=== PATIENT | female | born 1960 | race Hispanic/Latino ===

== ENCOUNTER → 2018-04-18 | Outpatient (CLI) | payer MEDICARE | END | disposition home or self-care (01) | LOC: RAH 10:32 | PROVIDERS: ATTEND Neurological Surgery | DX: M48.061 Spinal stenosis, lumbar region without neurogenic claudication (principal); M51.16 Intervertebral disc disorders with radiculopathy, lumbar region | CPT/HCPCS: 72148 ==

== ENCOUNTER → 2018-05-27 | Outpatient (CLI) | payer MEDICARE ==
[~2018-05-27] VITALS: Ht 160 cm; Wt 80.6 kg
[~2018-05-27] MED LIST: ASPI-555 PO; CARV12.511 PO; CARV6.25 PO; CLON0.2T PO; ERGO500014 PO; IBUP-2076 PO; LEVO75TA10 PO; LISI40TA4 PO; OMEP20TA25 PO; PRED5TAB PO; TOFA11TA PO
[2018-05-27 11:49] LABS: BASOPHILS % (AUTO) 0.3 % (0.0-5.0); EOSINOPHILS % (AUTO) 2.6 % (0.0-8.0); HEMATOCRIT 34.5 % (36-48); MEAN CORPUSCULAR HEMOGLOBIN 30.4 pg (27.0-33.0); MEAN CORPUSCULAR HGB CONC 33.7 g/dL (32.0-36.0); MEAN CORPUSCULAR VOLUME 90.4 fL (79-99); MONOCYTES % (AUTO) 10.7 % (3.0-13.0); NEUTROPHILS % (AUTO) 48.4 % (40.0-77.0); PLATELET COUNT (AUTO) 187 K/uL (130-400); RED BLOOD CELL COUNT(AUTO) 3.82 MIL/uL (4.00-5.50); RED CELL DISTRIBUTION WIDTH 13.9 % (11.0-15.5); WHITE BLOOD COUNT (AUTO) 3.4 K/uL (4.8-10.8)
[2018-05-27 11:58] LABS: POTASSIUM 3.8 mmol/L (3.5-5.1)
[2018-05-27 12:51] VITALS: BP 182/82
--- NOTE | 2018-05-27 13:36 | NUR ---
bp patient preop today and noted with elevated bp 190/82 , pt states has a pain of 8 in level 1-10, Notified Dr. Joya, message left with [facility], as per Dr. Joya have patient see cardiology again before sx. There is already cardiac clearance on file, but due to elevated bp dr. joya wants patient to be seen again. Called Dr. Cueto office patient can be seen tomorrow 05/28/18 at 1 pm , pt was notified.
--- NOTE | 2018-05-28 14:00 | NUR ---
CBC WBC 3.4, H&H low,drawn 05/27/[address] Bagley/Ed[facility], repeat cbc in am of surgery
--- NOTE | 2018-05-28 15:18 | NUR ---
Cancel Surgery surgery canceled due to elevated BP per Dr Saxena to Edita/Dr Bagley
== END | disposition home or self-care (01) ==
LOC: DAH 10:00 → EDSTATUS 10:45
PROVIDERS: ATTEND Neurological Surgery
DX: Z01.818 Encounter for other preprocedural examination (principal); M51.26 Other intervertebral disc displacement, lumbar region; I10 Essential (primary) hypertension
CPT/HCPCS: 36415; 71045; 80051; 85025

== ENCOUNTER 2018-07-10 10:52 | Day surgery (SDC) | payer MEDICARE ==
[2018-07-08 09:26] LABS: BILIRUBIN,URINE Negative (NEGATIVE); COLOR,URINE Yellow (YELLOW); GLUCOSE, URINE (UA) Negative (NEGATIVE); KETONES,URINE Trace mg/dL (NEGATIVE); LEUKOCYTE ESTERASE ,URINE Small (NEGATIVE); NITRATE,URINE Negative (NEGATIVE); OCCULT BLOOD,URINE Negative (NEGATIVE); PH,URINE 5.5 (5.0-8.0); PROTEIN,URINE Negative (NEGATIVE)
[2018-07-08 09:26] LABS: BASOPHILS % (AUTO) 0.4 % (0.0-5.0); EOSINOPHILS % (AUTO) 2.2 % (0.0-8.0); HEMATOCRIT 31.4 % (36-48); LYMPHOCYTES % (AUTO) 33.7 % (21.0-51.0); MEAN CORPUSCULAR HEMOGLOBIN 29.9 pg (27.0-33.0); MEAN CORPUSCULAR HGB CONC 33.6 g/dL (32.0-36.0); MEAN CORPUSCULAR VOLUME 89.2 fL (79-99); MONOCYTES % (AUTO) 12.8 % (3.0-13.0); NEUTROPHILS % (AUTO) 50.9 % (40.0-77.0); NUCLEATED RED BLOOD CELLS 0.1 % (0.0-0.19); PLATELET COUNT (AUTO) 152 K/uL (130-400); RED BLOOD CELL COUNT(AUTO) 3.52 MIL/uL (4.00-5.50); RED CELL DISTRIBUTION WIDTH 13.6 % (11.0-15.5); WHITE BLOOD COUNT (AUTO) 2.4 K/uL (4.8-10.8)
[2018-07-08 09:32] VITALS: BP 125/63
[2018-07-08 09:42] LABS: CREATININE 0.9 mg/dL (0.5-1.5); POTASSIUM 4.1 mmol/L (3.5-5.1)
[2018-07-08 09:45] LABS: APPEARANCE,URINE SLIGHTLY CLOUDY (CLEAR)
[2018-07-08 09:46] LABS: INR 0.95 (0.85-1.15); PARTIAL THROMBOPLASTIN TIME 25.7 SEC (26.3-35.5)
[2018-07-08 09:55] LABS: BACTERIA,URINE Rare /HPF (None Seen); MUCUS,URINE Rare LPF (None Seen); RBC,URINE 0-1 /HPF (0-1); SQUAMOUS EPITHELIAL CELL,UR Few /HPF (0-2); WBC,URINE 0-1 /HPF (0-1)
[2018-07-08 10:41] LABS: EOSINOPHILS % (MANUAL) 3 % (1-6); LYMPHOCYTES % (MANUAL) 33 % (22-44); MAN.DIFF COMMENT-IMPRESSION MANUAL DIFFERENTIAL; MONOCYTES % (MANUAL) 11 % (2-9); PLATELET MORPHOLOGY COMMENT ADEQUATE; REACTIVE LYMPHOCYTES 3 % (0-0); SEGMENTED NEUTROPHILS % 50 % (40-70)
--- NOTE | 2018-07-09 10:24 | NUR ---
ABNORMAL LABS SANDRA SINGH NOTIFIED OF PT'S WBC 2.4, ULEUKEST SMALL. NO FURTHER ORDERS GIVEN.
[~2018-07-10] VITALS: Ht 160 cm; Wt 80.1 kg
[2018-07-10] VITALS (9 sets, daily range): BP systolic 112–159; BP diastolic 59–84
[~2018-07-10 10:52] MED LIST changes: +CLON0.1T PO
[2018-07-10] MEDS ORDERED: SODIUM CHLORIDE 0.9% 1000ML 1,000 ML IV ONE (12:31)
--- NOTE | 2018-07-10 15:00 | NUR ---
REPORT RECEIVED REPORT FROM Katia LINARES RN. PT RESTING IN BED. DENIES ANY CP, SOB AT THIS TIME. AT BEDSIDE.
[2018-07-10] MEDS ORDERED: IOHEXOL-350 50ML VIAL IV ONE (15:26)
[2018-07-10] MEDS ORDERED: NITROGLYCERIN 5 MG/ML 10 ML VIAL IV ONE (15:26)
[2018-07-10] MEDS ORDERED: IOHEXOL 350 MG/ML 100ML INFUS..BTL IV ONE (15:26)
[2018-07-10] MEDS ORDERED: LIDOCAINE HCL-MPF 2% 10ML AMP IJ ONE (15:26)
[2018-07-10] MEDS ORDERED: BIVALIRUDIN 250 MG/VIAL IV ONE (15:26)
--- NOTE | 2018-07-10 15:35 | NUR ---
PROCEDURE PT TAKEN TO PROCEDURE VIA BED BY SCAR PEREZ.
[2018-07-10] MEDS ORDERED: LABETALOL HCL 5 MG/ML 20ML VIAL IV ONE (16:00)
[2018-07-10] MEDS ORDERED: HYDRALAZINE HCL 20 MG/ML VIAL ONE (16:31)
[2018-07-10] MEDS ORDERED: NITROGLYCERIN 0.4 MG SL TAB SL ONE (16:32)
[2018-07-10] MEDS ORDERED: SODIUM CHLORIDE 0.9% 1000ML 1,000 ML IV SCH (17:06)
--- NOTE | 2018-07-10 17:20 | NUR ---
ASSESSMENT RECEIVED PT FROM [employer] MECHANIC STAFF SCAR PEREZ. PT INSTRUCTED ON IMPORTANCE OF KEEPING RIGHT LEG STRAIGHT AND NOT TO LIFT HEAD OFF OF BED TO PREVENT BLEEDING. BOTH PT AND VERBALIZED UNDERSTANDING.
--- NOTE | 2018-07-10 18:24 | NUR ---
REPORT REPORT GIVEN TO SCAR SANTORO. SITE SOFT TO RIGHT GROIN. HANK BLEEDING, OOZING NOTED.
[2018-07-10] MEDS ORDERED: ONDANSETRON HCL 4 MG/2 ML VIAL ONE (19:26)
--- NOTE | 2018-07-10 19:49 | NUR ---
Received report from nurse Haider,pt. is sitting up in chair had episode of nausea and vomiting and was given with Zofran as per report pt. is to be discharged tonight @930pm to remove IV and send pt. home ,all discharge paper was already done and completed per dayshift.Pt. is alert and oriented denies chestpain . to bedside.
--- NOTE | 2018-07-10 19:55 | NUR ---
Pt. assisted back to bed and instructed to be on bedrest ,right groin inspected and examined,no s/s bleeding and no hematoma.Pedal pulses palpable and capillary refill is less than 3
--- NOTE | 2018-07-10 21:44 | NUR ---
V/S checked and recorded,pt. stable, denies chestpain or any discomfort.Pt. verbalized feeling much better.Right groin with dressing,soft and nontender,no bleeding and no hematoma,pedal pulses are present and palpable.IV removed,catheter tip intact.Dressing applied.Pt. is wheeled per staff accompanied by family.
== END 2018-07-10 19:15 | disposition home or self-care (01) ==
LOC: DAH 10:52
PROVIDERS: ATTEND Internal Medicine Cardiovascular Disease
DX: I25.10 Atherosclerotic heart disease of native coronary artery without angina pectoris (principal); I11.9 Hypertensive heart disease without heart failure; E78.5 Hyperlipidemia, unspecified; F15.90 Other stimulant use, unspecified, uncomplicated; Z79.82 Long term (current) use of aspirin; Z79.1 Long term (current) use of non-steroidal anti-inflammatories (NSAID); Z79.899 Other long term (current) drug therapy; Z90.49 Acquired absence of other specified parts of digestive tract; Z90.710 Acquired absence of both cervix and uterus; Z95.818 Presence of other cardiac implants and grafts; Z82.49 Family history of ischemic heart disease and other diseases of the circulatory system; Z83.3 Family history of diabetes mellitus; Z82.5 Family history of asthma and other chronic lower respiratory diseases; Z82.3 Family history of stroke
CPT/HCPCS: 36415; 71045; 80048; 81001; 85025; 85610; 85730; 93005; 93458; A4606; C1760; C1894; J0360; J1644; J2405; J3490 ×2; J7030; Q9965; Q9967 ×2; J0583

== ENCOUNTER 2018-08-10 09:16 | Emergency (ER) | payer MEDICARE ==
[~2018-08-10 09:16] MED LIST changes: +AMLO5TAB9 PO; -ERGO500014 PO; +LEVO50TA11 PO; -LEVO75TA10 PO; -PRED5TAB PO; +PREDNISONE PO
[2018-08-10] MEDS ORDERED: SODIUM CHLORIDE 0.9% 1000ML 1,000 ML IV ONE (09:53)
[2018-08-10] MEDS ORDERED: ONDANSETRON HCL 4 MG/2 ML VIAL ONE (09:53)
[2018-08-10] MEDS ORDERED: MORPHINE SULFATE 4 MG/1ML SYG ONE (09:53)
[2018-08-10] MEDS ORDERED: ACETAMINOPHEN 325 MG TAB ONE (09:53)
[2018-08-10 10:04] LABS: BASOPHILS % (AUTO) 0.2 % (0.0-5.0); EOSINOPHILS % (AUTO) 0.2 % (0.0-8.0); HEMATOCRIT 38.3 % (36-48); MEAN CORPUSCULAR HEMOGLOBIN 30.8 pg (27.0-33.0); MEAN CORPUSCULAR HGB CONC 33.9 g/dL (32.0-36.0); MEAN CORPUSCULAR VOLUME 90.9 fL (79-99); MONOCYTES % (AUTO) 8.2 % (3.0-13.0); NEUTROPHILS % (AUTO) 88.4 % (40.0-77.0); PLATELET COUNT (AUTO) 200 K/uL (130-400); RED BLOOD CELL COUNT(AUTO) 4.22 MIL/uL (4.00-5.50); RED CELL DISTRIBUTION WIDTH 15.7 % (11.0-15.5); WHITE BLOOD COUNT (AUTO) 7.5 K/uL (4.8-10.8)
[2018-08-10 10:16] LABS: INR 0.93 (0.85-1.15); PROTHROMBIN TIME 9.8 SEC (9.6-11.6)
[2018-08-10 11:05] LABS: CARBON DIOXIDE 24 mmol/L (21-32); CHLORIDE 100 mmol/L (101-111); CREATININE 0.8 mg/dL (0.5-1.5); GLOMERULAR FILTR. RATE CALC 78 mL/min (>60); GLUCOSE,RANDOM 101 mg/dL (70-105); POTASSIUM 3.2 mmol/L (3.5-5.1); SODIUM SERUM 138 mmol/L (136-145); UREA NITROGEN, BLOOD 13 mg/dL (7-18)
[2018-08-10 11:18] LABS: ALANINE AMINOTRANSFERASE 47 U/L (12-78); ASPARTATE AMINOTRANSFERASE 42 U/L (10-37); CREATINE KINASE, TOTAL 336 U/L (21-232); MYOGLOBIN 60 ng/mL (10-92); TROPONIN I < 0.04 ng/mL (0.00-0.06)
[2018-08-10] MEDS ORDERED: POTASSIUM CHLORIDE 20 MEQ ERTAB PO ONE (11:47)
[2018-08-10 12:06] LABS: APPEARANCE,URINE Clear (CLEAR); BILIRUBIN,URINE Negative (NEGATIVE); COLOR,URINE Yellow (YELLOW); GLUCOSE, URINE (UA) Negative (NEGATIVE); KETONES,URINE >=160 mg/dL (NEGATIVE); LEUKOCYTE ESTERASE ,URINE Small (NEGATIVE); NITRATE,URINE Negative (NEGATIVE); OCCULT BLOOD,URINE Negative (NEGATIVE); PH,URINE 6.5 (5.0-8.0); PROTEIN,URINE Negative (NEGATIVE)
[2018-08-10 12:59] LABS: BACTERIA,URINE Rare /HPF (None Seen); MUCUS,URINE Moderate LPF (None Seen); RBC,URINE 0-1 /HPF (0-1); SQUAMOUS EPITHELIAL CELL,UR Rare /HPF (0-2)
[2018-08-10] MEDS ORDERED: FENTANYL 25 MCG/HR PATCH TD ONE (13:26)
[2018-08-10] MEDS ORDERED: MORPHINE SULFATE 2 MG/ML 1ML SYG ONE (13:26)
== END 2018-08-10 13:54 | disposition home or self-care (01) ==
LOC: EDH 09:16
DX: G89.18 Other acute postprocedural pain (principal); M54.5 Low back pain; I10 Essential (primary) hypertension; R11.2 Nausea with vomiting, unspecified; R50.9 Fever, unspecified; Z90.49 Acquired absence of other specified parts of digestive tract; Z90.710 Acquired absence of both cervix and uterus; Z98.890 Other specified postprocedural states
CPT/HCPCS: 36415; 71045; 80053; 81001; 82550; 83605; 83874; 84484; 85025; 85610; 85730; 87040 ×2; 87088; 93005; 96361; 96374; 96375; 96376; 99284; J2270; J2405; J7030

== ENCOUNTER → 2018-10-01 | Outpatient (CLI) | payer MEDICARE ==
--- NOTE | 2018-10-01 21:00 | NUR ---
LEVOTHYROXINE 50 MCG, PANTOPRAZOLE SOD 40 MG X2, IBUPROFEN 400, XELJANZ 11MG, CHORTHALIDONE 25 MG, GABAPENTIN 100 MG, POTA CHLORIDE ER 10 MEQ AMLODIPINE 5MG, OMEPRAZOLE 20 MG. Addendum: 10/01/18 at 2253 by HOLLEY OLMOSLT Amended: Links added.
== END | disposition home or self-care (01) ==
LOC: SLP 20:21
PROVIDERS: ATTEND Internal Medicine Cardiovascular Disease
DX: G47.30 Sleep apnea, unspecified (principal)
CPT/HCPCS: 95810

== ENCOUNTER → 2018-10-09 | Outpatient (CLI) | payer MEDICARE ==
--- NOTE | 2018-10-09 23:17 | NUR ---
PATIENT REFUSES TO CONTINUE SLEEP STUDY 2ND NIGHT CPAP TITRATION, STATES MASK SMELL AND AIR PRESSURE (CPAP 4CM H2O) WALLPAPER CLEANER HER NAUSEA AND WANTS TO VOMIT. CLEANED FULL FACE MASK, NASAL MASK, NASAL PILLOWS WITH CITRUS SCENT WIPES AND PATIENT STILL FELT VERY NAUSEOUS AND WOULD LIKE TO NOT CONTINUE SLEEP STUDY. REFUSAL FORM SIGNED. Addendum: 10/09/18 at 2150 by HOLLEY EL Amended: Links added.
--- NOTE | 2018-10-10 06:25 | NUR ---
Patient refused to continue with sleep study last night at beginning of CPAP titration. When placed on CPAP, a few minutes later stated she was very nauseous and was about to vomit and full face mask CPAP mask was removed so she could recover. She stated mask smelled to much like plastic and said the air pressure caused her to feel this way too. CPAP pressure lowered from 5 cm H2O to 4 cm H2O. She mentioned this always happens to her with unusual smells and causes this reaction. Gave patient a break to feel normal again, wiped down and tried several masks with citrus scent CPAP mask wipes, tried nasal mask, and nasal prongs after the nausea had passed and patient stated she was still nauseous every time right after placing the CPAP pressure on with no change in nausea. Patient stated she could not continue with sleep study since she would feel nausea every time a mask and pressure was placed on her and signed refusal form. Addendum: 10/10/18 at 0634 by HOLLEY OLMOS Amended: Links added.
== END | disposition home or self-care (01) ==
LOC: SLP 20:25
PROVIDERS: ATTEND Internal Medicine Cardiovascular Disease
DX: G47.30 Sleep apnea, unspecified (principal); I10 Essential (primary) hypertension
CPT/HCPCS: 95811

== ENCOUNTER → 2018-11-06 | Outpatient (CLI) | payer MEDICARE | END | disposition home or self-care (01) | LOC: RAH 10:27 | PROVIDERS: ATTEND Physical Medicine & Rehabilitation | DX: M16.11 Unilateral primary osteoarthritis, right hip (principal) | CPT/HCPCS: 73502 ==

== ENCOUNTER → 2018-11-26 | Outpatient (CLI) | payer MEDICARE ==
[~2018-11-26] MED LIST changes: +GADODIAMIDE 10 MMOL/20 ML VIAL IV ONE
== END | disposition home or self-care (01) ==
LOC: RAH 10:32
PROVIDERS: ATTEND Physical Medicine & Rehabilitation
DX: M46.96 Unspecified inflammatory spondylopathy, lumbar region (principal); M54.16 Radiculopathy, lumbar region
CPT/HCPCS: 72158; A9579

== ENCOUNTER 2019-02-21 13:00 | Inpatient (IN) | payer MEDICARE ==
[~2019-02-21] VITALS: Ht 160 cm; Wt 75.2 kg
[~2019-02-21 13:00] MED LIST changes: -AMLO5TAB9 PO; -ASPI-555 PO; -CARV12.511 PO; -CARV6.25 PO; -CLON0.1T PO; -CLON0.2T PO; -GADODIAMIDE 10 MMOL/20 ML VIAL IV ONE; -LISI40TA4 PO; -PREDNISONE PO
[2019-02-21 13:10] LABS: BASOPHILS % (AUTO) 0.4 % (0.0-5.0); EOSINOPHILS % (AUTO) 0.4 % (0.0-8.0); HEMATOCRIT 34.2 % (36-48); LYMPHOCYTES % (AUTO) 8.4 % (21.0-51.0); MEAN CORPUSCULAR HEMOGLOBIN 30.2 pg (27.0-33.0); MEAN CORPUSCULAR HGB CONC 34.5 g/dL (32.0-36.0); MEAN CORPUSCULAR VOLUME 87.5 fL (79-99); MONOCYTES % (AUTO) 8.6 % (3.0-13.0); NEUTROPHILS % (AUTO) 82.2 % (40.0-77.0); PLATELET COUNT (AUTO) 314 K/uL (130-400); RED BLOOD CELL COUNT(AUTO) 3.91 MIL/uL (4.00-5.50)
[2019-02-21 13:18] VITALS: BP 136/72
[2019-02-21 13:19] LABS: CREATININE 0.8 mg/dL (0.5-1.5)
[2019-02-21 13:21] LABS: POTASSIUM 2.8 mmol/L (3.5-5.1)
[2019-02-21 13:28] LABS: INR 0.92 (0.85-1.15); PARTIAL THROMBOPLASTIN TIME 28.4 SEC (26.3-35.5); PROTHROMBIN TIME 9.7 SEC (9.6-11.6)
[2019-02-21] MEDS ORDERED: GABA-531 PO (13:43)
[2019-02-21] MEDS ORDERED: CHLO25TA3 PO (13:43)
[2019-02-21] MEDS ORDERED: LISI-617 PO (13:43)
[2019-02-21] MEDS ORDERED: AMLO10TA7 PO (13:44)
[2019-02-21] MEDS ORDERED: IBUP-14 PO (13:44)
--- NOTE | 2019-02-21 13:46 | NUR ---
CALLED DOCTOR MIJARES OFFICE TO ADVISE HIM OF PATIENT ABNORMAL LABS, NA 128, POTASSIUM LEVEL 2.8 AND CHLORIDE 90, SPOKE TO SHARON FLORES, AND SHE STATED THAT SHE WILL CALL DOCTOR MIJARES AND GET A HOLD OF THE PATIENT IF ANY ORDERS.
--- NOTE | 2019-02-26 20:01 | NUR ---
POTASSIUM CALLED PATIENT, PER PATIENT SHE WAS CALLED BY DR IRELAND'S OFFICE AND PRESCRIBED MEDICATION FOR HER POTASSIUM. PATIENT STATES THAT SHE HAS BEEN TAKING THE MEDICATION SINCE SUNDAY.
[2019-02-27] VITALS (24 sets, daily range): BP systolic 101–148; BP diastolic 55–89
[2019-02-27] MEDS ORDERED: CEFAZOLIN SODIUM 1 GM VIAL IVP ONE (08:00)
[2019-02-27] MEDS ORDERED: LACTATED RINGERS 1000ML 1,000 ML IV SCH (08:00)
[2019-02-27] MEDS ORDERED: CEFAZOLIN SODIUM 1 GM VIAL ONE (11:09)
[2019-02-27 11:30] LABS: POTASSIUM 3.8 mmol/L (3.5-5.1)
[2019-02-27] MEDS ORDERED: VANCOMYCIN HCL 1 GM VIAL ONE (13:12)
[2019-02-27] MEDS ORDERED: TRANEXAMIC ACID 1000MG/10ML IV ONE (13:12)
[2019-02-27] MEDS ORDERED: SUCCINYLCHOLINE 200MG/10ML SYR ONE (13:19)
[2019-02-27] MEDS ORDERED: FENTANYL CITRATE PF 50 MCG/1 ML 2ML VIAL ONE ×2 (13:19→17:33)
[2019-02-27] MEDS ORDERED: PROPOFOL 10 MG/ML 20ML VIAL IV ONE (13:19)
[2019-02-27] MEDS ORDERED: ROCURONIUM 10MG/1ML SYR 10 MG/ML ML ONE ×2 (13:19→15:36)
[2019-02-27] MEDS ORDERED: LIDOCAINE HCL MPF 1% 5ML VIAL ONE (13:19)
[2019-02-27] MEDS ORDERED: ROPIVACAINE 0.5% 5MG/ML 30ML IJ ONE ×2 (13:23→15:43)
[2019-02-27] MEDS ORDERED: KETOROLAC TROMETHAMINE 15MG/ML ONE (15:31)
[2019-02-27] MEDS ORDERED: NEOSTIGMINE 5MG/5ML SYR IV ONE (16:40)
[2019-02-27] MEDS ORDERED: GLYCOPYRROLATE 1 MG/5 ML SYRINGE ONE (16:41)
[2019-02-27] MEDS ORDERED: TRAMADOL HCL 50 MG TABLET PO PRN (17:00)
[2019-02-27] MEDS ORDERED: MORPHINE SULFATE 4 MG/1ML SYG IVP PRN (17:00)
[2019-02-27] MEDS ORDERED: OXYCODONE HCL 5 MG TAB PO PRN ×2 (17:00)
[2019-02-27] MEDS: ACETAMINOPHEN EXTRA STRENGTH 500 MG TABLET PO SCH ×2 (17:00→23:55)
[2019-02-27] MEDS ORDERED: MEPERIDINE-PF 25 MG/ML SYG ONE ×2 (17:22→17:44)
[2019-02-27] MEDS: ONDANSETRON HCL 4 MG/2 ML VIAL IVP PRN (18:23)
--- NOTE | 2019-02-27 21:00 | NUR ---
NAUSEA PER PATIENT NAUSEA GETTING BETTER , UNABLE TO TAKE PO MEDICATIONS AT THIS TIME
[2019-02-27] MEDS: SODIUM CHLORIDE 0.9% 1000ML 1,000 ML IV SCH ×2 (21:35→23:55)
[2019-02-27] MEDS: CEFAZOLIN SODIUM 1 GM VIAL IVP SCH (21:40)
[2019-02-27] MEDS: GABAPENTIN 300 MG CAPSULE PO SCH (23:53)
[2019-02-27] MEDS: FAMOTIDINE 20MG TAB 20 MG TAB PO SCH (23:53)
[2019-02-27] MEDS: ASPIRIN 81 MG EC TAB PO SCH (23:53)
[2019-02-27] MEDS: CELECOXIB 200 MG CAP PO SCH (23:55)
[2019-02-28] VITALS (7 sets, daily range): BP systolic 103–131; BP diastolic 56–72
[2019-02-28 03:47] LABS: HEMATOCRIT 30.2 % (36-48); MEAN CORPUSCULAR HEMOGLOBIN 30.6 pg (27.0-33.0); MEAN CORPUSCULAR HGB CONC 34.3 g/dL (32.0-36.0); MEAN CORPUSCULAR VOLUME 89.1 fL (79-99); PLATELET COUNT (AUTO) 226 K/uL (130-400); RED BLOOD CELL COUNT(AUTO) 3.39 MIL/uL (4.00-5.50); WHITE BLOOD COUNT (AUTO) 8.4 K/uL (4.8-10.8)
[2019-02-28 04:08] LABS: CREATININE 0.8 mg/dL (0.5-1.5)
[2019-02-28] MEDS ORDERED: LEVOTHYROXINE 50 MCG TABLET ONE (06:02)
[2019-02-28] MEDS: CEFAZOLIN SODIUM 1 GM VIAL IVP SCH (06:05)
[2019-02-28] MEDS: LEVOTHYROXINE 50 MCG TABLET PO SCH (06:05)
--- NOTE | 2019-02-28 06:15 | NUR ---
UNABLE TO VOID UNABLE TO VOID, BLADDER SCANNER SHOWING 593 CC, STRAIGHT CATHETER PLACED BY ANDREA CROWDER R.N, USING GAUGE 16 AND ASEPTIC TECHNIQUE, OBTAINED 600 CC OF CLEAR YELLOW URINE,TOLERATED WELL
[2019-02-28] MEDS: **HM**(Chlorthalidone 25 MG PO SCH (09:00)
[2019-02-28] MEDS: GABAPENTIN 300 MG CAPSULE PO SCH ×3 (09:00→19:53)
[2019-02-28] MEDS: LISINOPRIL 5 MG TABLET PO SCH ×4 (09:00→21:00)
[2019-02-28] MEDS: TOFACITINIB CITRATE 11 MG PO SCH (09:00)
[2019-02-28] MEDS: ONDANSETRON HCL 4 MG/2 ML VIAL IVP PRN (09:14)
[2019-02-28] MEDS ORDERED: HYDROMORPHONE HCL 2 MG TAB PO PRN (10:45)
[2019-02-28] MEDS: ASPIRIN 81 MG EC TAB PO SCH ×2 (10:50→19:52)
[2019-02-28] MEDS: FAMOTIDINE 20MG TAB 20 MG TAB PO SCH ×2 (10:50→19:53)
[2019-02-28] MEDS: CELECOXIB 200 MG CAP PO SCH ×2 (10:50→19:53)
[2019-02-28] MEDS: AMLODIPINE BESYLATE 5 MG TAB PO SCH (10:50)
[2019-02-28] MEDS: ACETAMINOPHEN EXTRA STRENGTH 500 MG TABLET PO SCH ×3 (10:51→16:36)
[2019-02-28] MEDS: POLYETHYLENE GLYCOL 3350 17 GM POWD.PACK PO SCH (10:57)
--- NOTE | 2019-02-28 12:54 | NUR ---
[facility] CM met with pt discussed dc plans. Pt is independent prior to admission, lives at home with spouse. Pt has a cane. Denies any other equipments/services. Pt states she would like to go to a rehab facility as it would be difficult for spouse to assist her at home. MOHAN signed for [facility]. DC plan to IR. COREI to cont to follow up. Addendum: 02/28/19 at 1257 by SASHA ALEXANDRA LVN CM Amended: Links added.
[2019-02-28] MEDS: SODIUM CHLORIDE 0.9% 1000ML 1,000 ML IV SCH (13:03)
--- NOTE | 2019-02-28 14:40 | NUR ---
CM Note: [facility] CM met with pt discussed recs for IRU w/[place], pt verbalized it is too far away from where she lives, prefers [facility], MOHAN signed. Faxed order, clinicals, PT, confirmation received. Spoke [facility] mcdermott/Pelon WHITMAN, received clinicals, will come and eval pt. Pt pending acceptance. Aware dcp for tomorrow/once approved. MOT semi-filled pending to be completed once approved. EMS arranged and faxed for tomorrow, primary nurse to call [facility] once pt ready to DC. Primary nurse aware. CM to con to follow up.
--- NOTE | 2019-02-28 16:11 | NUR ---
CM Note: [facility] bed full, won't have bed until possibly Sunday CM spoke to [facility] states they full capacity today, they might have some discharges possibly tomorrow but not confirmed yet. Earliest bed availabl possibly Sunday. CM met with pt made aware of the above. [facility] Pt stated she will think about it and will let CM know in AM. Primary nurse aware. CM to cont to follow up.
--- NOTE | 2019-02-28 16:42 | NUR ---
CM Note: [facility] acceptance Spoke to [facility]cdermott/[facility], they have a bed available for pt tomorrow. Pt has acceptance. MOT filled out pending MD and julissa bustos to sign. EMS arranged and faxed for tomorrow, primary nurse to call [facility] once pt ready to DC. primary nurse aware. CM to cont to follow up.
[2019-02-28] MEDS ORDERED: LISINOPRIL 5 MG TABLET ONE (19:48)
[2019-03-01] MEDS: ACETAMINOPHEN EXTRA STRENGTH 500 MG TABLET PO SCH ×3 (00:14→17:20)
[2019-03-01 04:00] VITALS: BP 110/60
[2019-03-01] MEDS: LEVOTHYROXINE 50 MCG TABLET PO SCH (06:05)
[2019-03-01] MEDS: GABAPENTIN 300 MG CAPSULE PO SCH (08:11)
[2019-03-01] MEDS: POLYETHYLENE GLYCOL 3350 17 GM POWD.PACK PO SCH (08:11)
[2019-03-01] MEDS: **HM**(Chlorthalidone 25 MG PO SCH (08:11)
[2019-03-01] MEDS: FAMOTIDINE 20MG TAB 20 MG TAB PO SCH (08:11)
[2019-03-01] MEDS: ASPIRIN 81 MG EC TAB PO SCH (08:11)
[2019-03-01] MEDS: TOFACITINIB CITRATE 11 MG PO SCH (08:11)
[2019-03-01] MEDS: CELECOXIB 200 MG CAP PO SCH (08:11)
[2019-03-01] MEDS: AMLODIPINE BESYLATE 5 MG TAB PO SCH (08:14)
[2019-03-01 11:00] VITALS: BP 109/63
[2019-03-01] MEDS ORDERED: GABAPENTIN 300 MG CAPSULE PO SCH (16:45)
--- NOTE | 2019-03-01 17:50 | NUR ---
DISCHARGE DISCHARGE TEACHING PROVIDED TO PATIENT REGARDING DR. IRELAND DISCHARGE ORDERS. INFORMED PATIENT KEEP DRESSING DRY AND INTACT, CONTINUE MEDICATIONS RECONCILED, F/U APPT WITH DR. MIJARES PENDING TO BE SCHEDULED. EDUCATED PATIENT ON PAIN CONTROL, CONTINUE AMBULATION INSTRUCTED BY PHYSICAL THERAPY (PARTIAL WEIGHT BEARING), DVT PROPHYLAXIS (TEDS AND ASPIRIN). REMOVED 20G IV FROM LEFT HAND, CATHETER TIP INTACT. NURSE REPORT GIVEN TO NURSE BAGLEY OF [facility].
[2019-03-02] MEDS ORDERED: BISACODYL 10 MG SUPP.RECT RC PRN (17:00)
== END 2019-03-01 19:10 | DRG 470 ==
LOC: EDSTATUS 13:00 → DAHIP 02-27 10:22 → 4BH 02-27 17:27
PROVIDERS: ADMIT Orthopaedic Surgery; ATTEND Orthopaedic Surgery
PROC: 0SR904Z Replacement of Right Hip Joint with Ceramic on Polyethylene Synthetic Substitute, Open Approach (ICD-10-PCS; principal; 2019-02-27 13:53)
DX: M16.11 Unilateral primary osteoarthritis, right hip (principal); M06.9 Rheumatoid arthritis, unspecified; M21.70 Unequal limb length (acquired), unspecified site; I10 Essential (primary) hypertension; K21.9 Gastro-esophageal reflux disease without esophagitis; E03.9 Hypothyroidism, unspecified; Z90.710 Acquired absence of both cervix and uterus
CPT/HCPCS: 36415; 72170; 73502; 80048; 80051; 85025; 85027; 85610; 85730; 86850; 86900; 86901; 87641; 97039; A4606; G0378; J0330; J0690; J1885; J2175; J2270; J2405; J2704; J2710; J2795; J3010; J3370; J3490; J7120

== ENCOUNTER 2019-03-14 11:04 | Inpatient (IN) | payer MEDICARE ==
[~2019-03-14] VITALS: Ht 160 cm; Wt 74.8 kg
[~2019-03-14 11:04] MED LIST changes: +AMLO10TA7 PO; +CHLO25TA3 PO; +GABA-531 PO; +IBUP-14 PO; +LISI-617 PO
[2019-03-14 12:04] LABS: BASOPHILS % (AUTO) 0.5 % (0.0-5.0); EOSINOPHILS % (AUTO) 0.2 % (0.0-8.0); HEMATOCRIT 31.1 % (36-48); LYMPHOCYTES % (AUTO) 14.8 % (21.0-51.0); MEAN CORPUSCULAR HEMOGLOBIN 30.1 pg (27.0-33.0); MEAN CORPUSCULAR HGB CONC 33.8 g/dL (32.0-36.0); MEAN CORPUSCULAR VOLUME 89.1 fL (79-99); MONOCYTES % (AUTO) 6.2 % (3.0-13.0); NEUTROPHILS % (AUTO) 78.3 % (40.0-77.0); NUCLEATED RED BLOOD CELLS 0.1 % (0.0-0.19); PLATELET COUNT (AUTO) 406 K/uL (130-400); RED BLOOD CELL COUNT(AUTO) 3.48 MIL/uL (4.00-5.50); RED CELL DISTRIBUTION WIDTH 15.8 % (11.0-15.5); WHITE BLOOD COUNT (AUTO) 6.9 K/uL (4.8-10.8)
[2019-03-14 12:08] LABS: CREATININE 0.8 mg/dL (0.5-1.5)
[2019-03-14 12:14] LABS: POTASSIUM 2.7 mmol/L (3.5-5.1)
[2019-03-14] MEDS ORDERED: TRAMADOL HCL 50 MG TABLET PO PRN (13:00)
[2019-03-14] MEDS ORDERED: POTASSIUM CHLORIDE 10% ELIXIR 20 MEQ/15 ML UDCUP PO PRN (13:00)
[2019-03-14 13:04] VITALS: BP 121/70
[2019-03-14] MEDS: ACETAMINOPHEN EXTRA STRENGTH 500 MG TABLET PO SCH ×2 (13:34→19:34)
[2019-03-14] MEDS: POTASSIUM CHLORIDE 20 MEQ ERTAB PO PRN ×4 (13:35→21:13)
[2019-03-14] MEDS: MAGNESIUM 2GM PREMIX 50ML 50 ML IV PRN ×2 (13:36→21:25)
[2019-03-14] MEDS: LIDOCAINE HCL-MPF 1% 2ML VIAL IV PRN ×2 (13:42→17:37)
[2019-03-14] MEDS: POTASSIUM CHLORIDE 20MEQ/100ML 100 ML IV PRN ×2 (13:42→17:38)
--- NOTE | 2019-03-14 16:15 | NUR ---
INITIAL MET W PT, DIRECT ADMIT FORM DAY PATIENT , HERE TO HAVE SEROMA ON HIP INCISION CLEANED OUT PER DR. MIJARES H/P, PT PROFOUNDLY HYPOKALEMIC THIS MORNING, K REPLACED. PT LIVES W SPOUSE [place] WHO WILL PROVIDE TRANSPORT. PT HAD HIP SURGERY APROXIMATLY 3 WEEKS AGO, WAS DISCHARGED TO [facility] , INCISION STARTED TO DRAIN SEROUS DRAINAGE WHILE THERE, PT WAS SENT HOME WITHOUT HOME HEALTH, AND FOLLOW UP W MD [place] NOW HERE FOR PROCEDURE, WITH POSSIBLE DC AFTER THAT. ADVISED PT CM WILL ASK DR. IRELAND POST PROCEDURE IF WOULD LIKE A TO FOLLOW FOR WOUND CARE. PT WALKING WELL W WALKER, [facility] Addendum: 03/14/19 at 2151 by CATIE JOAQUIN RN CM Amended: Links added.
[2019-03-14 16:23] VITALS: BP 111/61
[2019-03-14] MEDS ORDERED: LISINOPRIL 5 MG TABLET ONE (19:31)
[2019-03-14] MEDS: ASPIRIN 81 MG EC TAB PO SCH (19:34)
[2019-03-14 20:09] VITALS: BP 118/65
[2019-03-14] MEDS: GABAPENTIN 300 MG CAPSULE PO SCH (21:02)
[2019-03-14 21:11] LABS: MAGNESIUM 1.8 mg/dL (1.80-2.40)
[2019-03-14 23:53] VITALS: BP 108/63
[2019-03-15] VITALS (24 sets, daily range): BP systolic 99–135; BP diastolic 55–75
[2019-03-15 04:16] LABS: HEMATOCRIT 27.7 % (36-48); MEAN CORPUSCULAR HEMOGLOBIN 30.3 pg (27.0-33.0); MEAN CORPUSCULAR HGB CONC 34.2 g/dL (32.0-36.0); MEAN CORPUSCULAR VOLUME 88.8 fL (79-99); NUCLEATED RED BLOOD CELLS 0.1 % (0.0-0.19); PLATELET COUNT (AUTO) 330 K/uL (130-400); RED BLOOD CELL COUNT(AUTO) 3.12 MIL/uL (4.00-5.50); RED CELL DISTRIBUTION WIDTH 15.8 % (11.0-15.5); WHITE BLOOD COUNT (AUTO) 6.8 K/uL (4.8-10.8)
[2019-03-15 04:36] LABS: CREATININE 0.7 mg/dL (0.5-1.5); MAGNESIUM 2.1 mg/dL (1.80-2.40); POTASSIUM 4.2 mmol/L (3.5-5.1)
[2019-03-15] MEDS: ACETAMINOPHEN EXTRA STRENGTH 500 MG TABLET PO SCH ×4 (05:00→20:01)
[2019-03-15] MEDS: LEVOTHYROXINE 50 MCG TABLET PO SCH (05:03)
[2019-03-15] MEDS ORDERED: PROPOFOL 10 MG/ML 20ML VIAL IV ONE (07:41)
[2019-03-15] MEDS ORDERED: LIDOCAINE PF 2% 5ML ABBOJECT ONE (07:41)
[2019-03-15] MEDS ORDERED: FENTANYL CITRATE PF 50 MCG/1 ML 2ML VIAL ONE (07:42)
[2019-03-15] MEDS ORDERED: CEFAZOLIN SODIUM 1 GM VIAL ONE (07:55)
[2019-03-15] MEDS ORDERED: LACTATED RINGERS 1000ML 1,000 ML IV ONE (07:56)
[2019-03-15] MEDS ORDERED: MIDAZOLAM HCL 1 MG/ML 2ML VIAL ONE (08:21)
[2019-03-15] MEDS ORDERED: VANCOMYCIN HCL 1 GM VIAL ONE (08:36)
[2019-03-15] MEDS ORDERED: SODIUM CHLORIDE 0.9% 10 ML VIAL ONE (08:38)
[2019-03-15] MEDS ORDERED: PHENYLEPHRINE HCL 10 MG/ML 1ML VIAL IV ONE (08:38)
[2019-03-15] MEDS: AMLODIPINE BESYLATE 5 MG TAB PO SCH (09:00)
[2019-03-15] MEDS: **HM** CHLORTHALIDONE 25MG PO SCH (09:00)
[2019-03-15] MEDS: POLYETHYLENE GLYCOL 3350 17 GM POWD.PACK PO SCH (09:00)
[2019-03-15] MEDS: **HM** XELJANZ XR 11MG PO SCH (09:00)
[2019-03-15] MEDS ORDERED: LISINOPRIL 5 MG TABLET PO SCH (09:00)
--- NOTE | 2019-03-15 09:10 | NUR ---
Nutrition Intervention: Nutrition consult due to wound infection, poor appetite. Pt. not in room- out for procedure during RD visit. Pt. NPO for procedure. Pt. previously on Regular diet with good p.o. intake, as noted in EMR. Labs reviewed. LBM: 03/14/19. SR-21, right hip incision. BMI: 29.2, overweight. Recommendations: 1) When medically feasible, rec. Heart Healthy diet. 2) Continue to monitor pt's nutritional status. 3) Consult RD as nutrition concerns arise. Addendum: 03/15/19 at [address] Amended: Links added.
[2019-03-15] MEDS ORDERED: KETOROLAC TROMETHAMINE 30MG/ML ONE (09:14)
[2019-03-15] MEDS ORDERED: ONDANSETRON HCL 4 MG/2 ML VIAL ONE (09:14)
[2019-03-15] MEDS: ASPIRIN 81 MG EC TAB PO SCH ×2 (11:54→20:01)
[2019-03-15] MEDS: GABAPENTIN 300 MG CAPSULE PO SCH ×2 (11:55→20:01)
--- NOTE | 2019-03-15 13:45 | NUR ---
DISCHARGE/HOME HEALTH FAMILY AND PATIENT STATE THAT THEY DO NOT KNOW IF HOME HEALTH HAS BEEN SET UP FROM DR. IRELAND'S OFFICE. FAMILY AND PATIENT REPORT NOT RECEIVING NOTIFICATION OF HOME HEALTH ACCEPTANCE FROM DR. IRELAND'S OFFICE OR A HOME HEALTH COMPANY. I TOLD PATIENT AND FAMILY I WOULD LOOK INTO TRYING TO FIND OUT MORE INFORMATION REGARDING HOME HEALTH BEING SET UP. Addendum: 03/15/19 at 1950 by MATT DISLA RN RN DISREGARD NURSES NOTE; NOTE ENTERED ON WRONG PATIENT.
--- NOTE | 2019-03-15 14:05 | NUR ---
[employer] HOME HEALTH FROM PATIENT H&P IN CHART FROM DR. IRELAND'S OFFICE, DATED 03-09-2019, I DO SEE UNDER "ASSESSMENT/PLAN" REPORTS "WE WILL SET HER [PATIENT] UP WITH HOME HEALTH FOR HER THERAPY, [facility]." I CALLED [employer] MACHINE OPERATOR [employer] AND SHE DID CLARIFY THAT [facility] IS WITHIN PATIENTS INSURANCE NETWORK. I CALLED [facility] [phone] IN ORDER TO CLARIFY IF PATIENT HAS BEEN ACCEPTED TO HOME HEALTH COMPANY. AWAITING CALLBACK. Addendum: 03/15/19 at 1952 by MATT DISLA RN RN DISREGARD NURSE NOTE; ENTERED ON WRONG PATIENT
--- NOTE | 2019-03-15 15:00 | NUR ---
DR. SHU ARMENDARIZ CALLED TO OBTAIN UPDATE ON PATIENT STATUS. INFORMED MD THAT [facility] HAS HAD NO OUTPUT. MD REPLIED THAT HE WANTS TO KEEP PATIENT ONE MORE NIGHT TO GIVE SCHEDULED ANTIBIOTICS AND PLAN FOR POSSIBLE DISCHARGE TOMORROW.
[2019-03-15] MEDS ORDERED: CEFAZOLIN SODIUM 1 GM VIAL IVP SCH ×2 (16:40)
[2019-03-15] MEDS: LISINOPRIL 5 MG TABLET PO SCH (20:01)
[2019-03-16] MEDS: CEFAZOLIN SODIUM 1 GM VIAL IVP SCH ×2 (01:44→10:51)
[2019-03-16 03:30] VITALS: BP 129/71
[2019-03-16] MEDS: LEVOTHYROXINE 50 MCG TABLET PO SCH (05:46)
[2019-03-16] MEDS: ACETAMINOPHEN EXTRA STRENGTH 500 MG TABLET PO SCH ×3 (05:48→19:23)
[2019-03-16 07:57] VITALS: BP 119/72
[2019-03-16] MEDS: **HM** XELJANZ XR 11MG PO SCH (08:45)
[2019-03-16] MEDS: **HM** CHLORTHALIDONE 25MG PO SCH (08:45)
[2019-03-16] MEDS: ASPIRIN 81 MG EC TAB PO SCH ×2 (08:47→19:23)
[2019-03-16] MEDS: AMLODIPINE BESYLATE 5 MG TAB PO SCH (08:48)
[2019-03-16] MEDS: GABAPENTIN 300 MG CAPSULE PO SCH ×2 (08:48→19:24)
[2019-03-16] MEDS: POLYETHYLENE GLYCOL 3350 17 GM POWD.PACK PO SCH (08:48)
[2019-03-16] MEDS ORDERED: VANCOMYCIN PROTOCOL PER PHARMACY IV SCH (15:15)
[2019-03-16 15:59] VITALS: BP 122/75
[2019-03-16] MEDS: VANCOMYCIN 1GM+NS 250ML 250 ML IV SCH (16:53)
[2019-03-16 19:09] VITALS: BP 119/61
[2019-03-16] MEDS: LISINOPRIL 5 MG TABLET PO SCH (19:24)
[2019-03-16] MEDS: OXYCODONE HCL 5 MG TAB PO PRN ×2 (19:24→23:51)
[2019-03-16 23:19] VITALS: BP 115/67
[2019-03-17] VITALS (25 sets, daily range): BP systolic 98–142; BP diastolic 60–79
[2019-03-17] MEDS: ACETAMINOPHEN EXTRA STRENGTH 500 MG TABLET PO SCH ×3 (05:18→20:05)
[2019-03-17] MEDS: LEVOTHYROXINE 50 MCG TABLET PO SCH (05:18)
[2019-03-17] MEDS: VANCOMYCIN 1GM+NS 250ML 250 ML IV SCH ×2 (08:18→20:06)
[2019-03-17] MEDS: **HM** CHLORTHALIDONE 25MG PO SCH (09:00)
[2019-03-17] MEDS: ASPIRIN 81 MG EC TAB PO SCH (09:00)
[2019-03-17] MEDS: POLYETHYLENE GLYCOL 3350 17 GM POWD.PACK PO SCH (09:00)
[2019-03-17] MEDS: **HM** XELJANZ XR 11MG PO SCH (09:00)
[2019-03-17] MEDS: GABAPENTIN 300 MG CAPSULE PO SCH ×2 (09:00→20:04)
[2019-03-17] MEDS: AMLODIPINE BESYLATE 5 MG TAB PO SCH (09:00)
[2019-03-17] MEDS: SODIUM CHLORIDE 0.9% 1000ML 1,000 ML IV SCH ×2 (10:30→21:47)
[2019-03-17] MEDS ORDERED: LACTATED RINGERS 1000ML 1,000 ML IV ONE (13:40)
[2019-03-17] MEDS ORDERED: LIDOCAINE PF 2% 5ML ABBOJECT ONE (14:29)
[2019-03-17] MEDS ORDERED: MIDAZOLAM HCL 1 MG/ML 2ML VIAL ONE (14:29)
[2019-03-17] MEDS ORDERED: PROPOFOL 10 MG/ML 20ML VIAL IV ONE (14:29)
[2019-03-17] MEDS ORDERED: FENTANYL CITRATE PF 50 MCG/1 ML 5ML AMP IV ONE ×2 (14:30→16:12)
[2019-03-17] MEDS ORDERED: ROCURONIUM 10MG/1ML SYR 10 MG/ML ML ONE ×2 (14:30→16:11)
[2019-03-17] MEDS ORDERED: EPHEDRINE SULFATE 50 MG/ML AMPULE ONE (14:52)
[2019-03-17] MEDS ORDERED: DEXAMETHASONE SOD PHOSPHATE 10MG/ML 1ML VIAL ONE (15:28)
[2019-03-17] MEDS ORDERED: NEOSTIGMINE 5MG/5ML SYR IV ONE (15:28)
[2019-03-17] MEDS ORDERED: GLYCOPYRROLATE 1 MG/5 ML SYRINGE ONE (15:28)
[2019-03-17] MEDS ORDERED: ONDANSETRON HCL 4 MG/2 ML VIAL ONE ×2 (15:28→18:11)
[2019-03-17] MEDS ORDERED: CLINDAMYCIN PHOSPHATE 150 MG/ML 6ML VIAL ONE (16:19)
[2019-03-17] MEDS ORDERED: VANCOMYCIN HCL 1 GM VIAL ONE (16:44)
[2019-03-17] MEDS ORDERED: TRANEXAMIC ACID 1000MG/10ML IV ONE (16:49)
[2019-03-17] MEDS ORDERED: KETOROLAC TROMETHAMINE 30MG/ML ONE (17:42)
[2019-03-17] MEDS ORDERED: MEPERIDINE-PF 25 MG/ML SYG ONE (18:02)
[2019-03-17] MEDS: LISINOPRIL 5 MG TABLET PO SCH (20:04)
[2019-03-17] MEDS: RIFAMPIN 300 MG CAPSULE PO SCH (20:04)
[2019-03-17] MEDS: OXYCODONE HCL 5 MG TAB PO PRN (20:05)
[2019-03-17] MEDS: ONDANSETRON HCL 4 MG/2 ML VIAL IVP PRN (20:11)
[2019-03-18 00:03] VITALS: BP 111/69
[2019-03-18 04:00] VITALS: BP 105/58
[2019-03-18] MEDS: ACETAMINOPHEN EXTRA STRENGTH 500 MG TABLET PO SCH ×3 (04:54→19:41)
[2019-03-18 05:10] LABS: BASOPHILS % (AUTO) 0.2 % (0.0-5.0); HEMATOCRIT 21.5 % (36-48); LYMPHOCYTES % (AUTO) 5.3 % (21.0-51.0); MEAN CORPUSCULAR HGB CONC 33.6 g/dL (32.0-36.0); MEAN CORPUSCULAR VOLUME 89.2 fL (79-99); MONOCYTES % (AUTO) 2.4 % (3.0-13.0); NEUTROPHILS % (AUTO) 92.1 % (40.0-77.0); PLATELET COUNT (AUTO) 327 K/uL (130-400); RED BLOOD CELL COUNT(AUTO) 2.41 MIL/uL (4.00-5.50); RED CELL DISTRIBUTION WIDTH 15.5 % (11.0-15.5)
[2019-03-18 05:25] LABS: CREATININE 0.8 mg/dL (0.5-1.5)
[2019-03-18] MEDS: SODIUM CHLORIDE 0.9% 1000ML 1,000 ML IV SCH ×2 (05:34→16:30)
[2019-03-18 05:49] LABS: POTASSIUM 4.5 mmol/L (3.5-5.1)
[2019-03-18] MEDS: LEVOTHYROXINE 50 MCG TABLET PO SCH (06:34)
[2019-03-18] MEDS: **HM** CHLORTHALIDONE 25MG PO SCH (07:25)
[2019-03-18 08:40] VITALS: BP 102/63
[2019-03-18] MEDS: GABAPENTIN 300 MG CAPSULE PO SCH ×2 (08:51→19:42)
[2019-03-18] MEDS: RIFAMPIN 300 MG CAPSULE PO SCH ×2 (08:51→19:42)
[2019-03-18] MEDS: AMLODIPINE BESYLATE 5 MG TAB PO SCH (08:52)
[2019-03-18] MEDS: VANCOMYCIN 1GM+NS 250ML 250 ML IV SCH ×2 (08:52→19:41)
[2019-03-18] MEDS: ENOXAPARIN SODIUM 30 MG/0.3 ML SQ SCH (08:52)
[2019-03-18] MEDS: POLYETHYLENE GLYCOL 3350 17 GM POWD.PACK PO SCH (08:52)
[2019-03-18 11:35] VITALS: BP 119/64
[2019-03-18] MEDS: ONDANSETRON HCL 4 MG/2 ML VIAL IVP PRN (12:22)
[2019-03-18 14:18] LABS: INR 0.91 (0.85-1.15); PARTIAL THROMBOPLASTIN TIME 25.6 SEC (26.3-35.5); PROTHROMBIN TIME 9.6 SEC (9.6-11.6)
[2019-03-18] MEDS ORDERED: PANTOPRAZOLE SODIUM 40 MG TABLET.DR PO ONE (15:04)
--- NOTE | 2019-03-18 16:00 | NUR ---
MET W PATIENT TO DISCUSS LT ABX- BARRIER TO [facility] RE[facility]- PT HAS NO SECONDARY INSURANCE PT OPTING TO GO TO A SNF LEVEL OF CARE. SPOKE TO DR. MIJARES OFFICE TO INFORM OF PLAN- SPOKE TO DR. JOLLEY TO ADVISE OF PLAN ALSO, PKT SENT TO [facility] AND REP HERE TO SEE PT. PT ACCEPTED Addendum: 03/18/19 at 1809 by CATIE OJAQUIN RN CM Amended: Links added.
[2019-03-18 16:03] VITALS: BP 113/60
[2019-03-18] MEDS: LISINOPRIL 5 MG TABLET PO SCH (19:42)
[2019-03-18] MEDS: OXYCODONE HCL 5 MG TAB PO PRN (19:42)
[2019-03-18 20:00] VITALS: BP 121/61
[2019-03-19] VITALS: BP 115/60
[2019-03-19] MEDS: SODIUM CHLORIDE 0.9% 1000ML 1,000 ML IV SCH ×2 (02:03→12:42)
[2019-03-19 04:00] VITALS: BP 111/65
[2019-03-19] MEDS: LEVOTHYROXINE 50 MCG TABLET PO SCH (05:37)
[2019-03-19] MEDS: ACETAMINOPHEN EXTRA STRENGTH 500 MG TABLET PO SCH ×2 (05:37→14:25)
[2019-03-19] MEDS ORDERED: PANTOPRAZOLE SODIUM 40 MG TABLET.DR PO SCH (07:30)
--- NOTE | 2019-03-19 08:00 | NUR ---
[facility] REMOVAL BENNETT BROWN FOR DR. IRELAND HERE TO SEE PATIENT. BENNETT BROWN REMOVED RIGHT LEG [facility] AT PATIENT BEDSIDE.
[2019-03-19 08:03] VITALS: BP 121/67
[2019-03-19] MEDS: ENOXAPARIN SODIUM 30 MG/0.3 ML SQ SCH (09:00)
[2019-03-19] MEDS: **HM** CHLORTHALIDONE 25MG PO SCH (09:00)
[2019-03-19] MEDS: POLYETHYLENE GLYCOL 3350 17 GM POWD.PACK PO SCH (09:00)
--- NOTE | 2019-03-19 09:00 | NUR ---
LOVENOX NOT GIVEN DID NOT ADMINISTER SCHEDULED AM LOVENOX PATIENT PENDING TO HAVE PICC LINE PLACEMENT TODAY.
--- NOTE | 2019-03-19 09:00 | NUR ---
PRIMARY RN AWARE THAT PT IS ACCEPTED AT [facility]
[2019-03-19 09:03] LABS: HEMATOCRIT 25.2 % (36-48)
[2019-03-19] MEDS: VANCOMYCIN 1GM+NS 250ML 250 ML IV SCH (10:04)
[2019-03-19] MEDS: AMLODIPINE BESYLATE 5 MG TAB PO SCH (10:08)
[2019-03-19] MEDS: GABAPENTIN 300 MG CAPSULE PO SCH (10:09)
[2019-03-19] MEDS: RIFAMPIN 300 MG CAPSULE PO SCH (10:09)
[2019-03-19 11:26] VITALS: BP 126/73
[2019-03-19] MEDS ORDERED: VANCOMYCIN 1.75 GM in SODIUM CHLORIDE 0.9% 250 ML IV SCH (14:30)
--- NOTE | 2019-03-19 14:30 | NUR ---
POST PICC LINE CXR CALLED BENNETT BROWN FOR DR. IRELAND TO REPORT POST PICC LINE INSERTION CHEST XRAY RESULTS. RECEIVED ORDER OK TO USE PICC LINE. REMOVED 22G IV FROM RIGHT FA, CATHETER TIP INTACT. RIGHT UPPER ARM PICC LINE, DOUBLE LUMEN, FLUSHED EACH LUMEN WITH NS, NO RESISTANCE NOTED.
[2019-03-19 16:04] VITALS: BP 122/67
--- NOTE | 2019-03-19 16:30 | NUR ---
[facility] REPORT NURSE REPORT GIVEN TO NURSE AVINA OF [facility] [phone]. INFORMED NURSE OF MD DISCHARGE ORDERS (LIANNA DRESSING TO BE REMOVED IN 7 DAYS, IV ABX AND PO ABX TO CONTINUE FOR 4 WEEKS, PICC LINE PLACED TODAY, MEDICATION RECONCILIATION, SCHEDULED F/U APPT WITH DR. IRELAND, DISCHARGE ACTIVITY (WBAT TO RIGHT LEG WITH WALKER). MEDICATION RECONCILIATION AND DR. JOLLEY WRITTEN RX FAXED TO [facility] [phone]. COPY OF MEDICATION RECONCILIATION AND ORIGINAL WRITTEN RX (VANCO, RIFAMPIN, BMP/VANCO LAB WORK) FROM DR. JOLLEY PLACED IN PATIENT CHART COPY FOLDER.
--- NOTE | 2019-03-19 16:47 | NUR ---
PRIMARY RN AWARE THAT PT IS ACCEPTED AT [facility] Addendum: 03/19/19 at 1650 by CATIE JOAQUIN RN CM THIS NOTE IS FROM THIS MORNING
--- NOTE | 2019-03-19 17:00 | NUR ---
PATIENT COMPLAINT PATIENT REPORTS HAVING "DIARRHEA" AT LEAST 5 TIMES SO FAR. I ASKED PATIENT TO DESCRIBE STOOLS AND PATIENT REPLIED "WATERY AND BROWN." I CALLED BENNETT BROWN FOR DR. IRELAND AND REPORTED PATIENT SYMPTOMS. ORDERS PLACED. Addendum: 03/19/19 at 2004 by MATT DISLA RN RN EBNNETT BROWN AWARE PATIENT TO BE TRANSFERRED TODAY. NURSE AVINA DID INFORM ME ISOLATION ROOM WOULD BE AVAILABLE FOR PATIENT. NURSE AVINA AWARE TO FOLLOW-UP WITH C-DIFF TESTING I WAS UNABLE TO OBTAIN STOOL SAMPLE PRIOR TO PATIENT TRANSFER TO [facility].
--- NOTE | 2019-03-19 18:00 | NUR ---
DISCHARGE DISCHARGE TEACHING PROVIDED TO PATIENT REGARDING MEDICATIONS RECONCILIATION, MEDICATION DISCHARGE ORDERS, LIANNA DRESSING, DISCHARGE ACITIV Addendum: 03/19/19 at 1956 by MATT DISLA RN RN CONTINUED FROM ABOVE NOTE; *DISCHARGE ACTIVITY (WBAT WITH WALKER), PICC LINE, SCHEDULED F/U APPT WITH DR. IRELAND, DR. JOLLEY TO FOLLOW PATIENT AT [facility] REGARDING IV ANTIBIOTICS AND VANCO TROUGH/BMP LAB WORK. PATIENT VERBALIZED UNDERSTANDING OF DISCHARGE TEACHING. PERFORMED RIGHT HIP LIANNA DRESSING CHANGE PRIOR TO DISCHARGE. REMOVED LIANNA DRESSING, RIGHT HIP INCISION NOTED TO BE APPROXIMATED AND ASYMPTOMATIC, SUTURES INTACT. PLACED NEW LIANNA DRESSING, FLASHING GREEN. APPLIED GIANLUCA WRAP OVER RIGHT LEG. [facility] TRANSPORT STAFF ARRIVED BEFORE BEING ABLE TO OBTAIN STOOL FOR C-DIFF TESTING. I CALLED NURSE AVINA FROM [facility] AND INFORMED HER THAT I WAS UNABLE TO OBTAIN STOOL SAMPLE FOR C-DIFF TESTING. I ALSO FAXED UPDATED MEDICATIONS RECONCILIATION FORM TO [facility] WITH NEW ORDER FOR [facility] PRN DIARRHEA AND INFORMED NURSE AVINA IF UPDATED MEDICATION RECONCILIATION. Addendum: 03/19/19 at 2001 by MATT DISLA RN RN PATIENT TRANSFERRED TO [facility] VIA [facility]. RIGHT UPPER ARM 5 FR PICC LINE, DOUBLE LUMEN, PICC LINE DRESSING DRY AND INTACT. BOTH PICC LUMEN PORTS FLUSHED WITH NS, NO RESISTANCE NOTED. RIGHT HIP LIANNA DRESSING, FLASHING GREEN. GIANLUCA WRAP TO RLE. BLE LOUISE HOSE IN PLACE. PATIENT REPORTS PAIN 0/10.
[2019-03-19] MEDS ORDERED: LOPERAMIDE 1 MG/7.5 ML UDCUP PO ONE (18:30)
== END 2019-03-19 18:49 | DRG 467 ==
LOC: EDH 11:04 → EDHIP 11:23 → OBSVTOIN 11:23 → 4AH 12:43
PROVIDERS: ADMIT Orthopaedic Surgery; ATTEND Orthopaedic Surgery
PROC: 0J9L0ZZ Drainage of Right Upper Leg Subcutaneous Tissue and Fascia, Open Approach (ICD-10-PCS; 2019-03-15)
PROC: 0SP90JZ Removal of Synthetic Substitute from Right Hip Joint, Open Approach (ICD-10-PCS; 2019-03-17)
PROC: 0SR90JZ Replacement of Right Hip Joint with Synthetic Substitute, Open Approach (ICD-10-PCS; principal; 2019-03-17 15:00)
PROC: 30233N1 Transfusion of Nonautologous Red Blood Cells into Peripheral Vein, Percutaneous Approach (ICD-10-PCS; 2019-03-18)
PROC: 02HV33Z Insertion of Infusion Device into Superior Vena Cava, Percutaneous Approach (ICD-10-PCS; 2019-03-19)
DX: T84.51XA Infection and inflammatory reaction due to internal right hip prosthesis, initial encounter (principal); M96.843 Postprocedural seroma of a musculoskeletal structure following other procedure; E87.6 Hypokalemia; G89.29 Other chronic pain; D64.9 Anemia, unspecified; E03.9 Hypothyroidism, unspecified; I10 Essential (primary) hypertension; M06.9 Rheumatoid arthritis, unspecified; M19.90 Unspecified osteoarthritis, unspecified site; Z96.641 Presence of right artificial hip joint; Y83.1 Surgical operation with implant of artificial internal device as the cause of abnormal reaction of the patient, or of later complication, without mention of misadventure at the time of the procedure; Y92.89 Other specified places as the place of occurrence of the external cause; Z90.710 Acquired absence of both cervix and uterus; Z80.8 Family history of malignant neoplasm of other organs or systems; Z82.49 Family history of ischemic heart disease and other diseases of the circulatory system
CPT/HCPCS: 36415; 36430; 71045; 72170; 73503; 80048; 80202; 83735; 84132; 85014; 85018; 85025; 85027; 85610; 85651; 85730; 86140; 86850; 86900; 86901; 86922; 87040; 87070; 87076; 87077; 87186; 87205; 88300; 97039; C1894; G0378; J0690; J1100; J1650; J1885; J2001; J2175; J2250; J2370; J2405; J2704; J2710; J3010; J3370; J3475; J3480; J3490; J7030; J7120; P9016

== ENCOUNTER → 2020-09-20 | Outpatient (CLI) | payer MEDICARE ==
[~2020-09-20] MED LIST changes: +AMLO-258 PO; -AMLO10TA7 PO; -LISI-617 PO; +LISI-809 PO; -TOFA11TA PO
== END | disposition home or self-care (01) ==
LOC: OIH 11:09
PROVIDERS: ATTEND Internal Medicine
DX: M19.041 Primary osteoarthritis, right hand (principal); M19.042 Primary osteoarthritis, left hand; M24.842 Other specific joint derangements of left hand, not elsewhere classified; M24.841 Other specific joint derangements of right hand, not elsewhere classified

== ENCOUNTER 2021-12-13 14:35 | Emergency (ER) | payer MEDICARE ==
[~2021-12-13] VITALS: Ht 160 cm; Wt 72.6 kg
[~2021-12-13 14:35] MED LIST changes: -LISI-809 PO; +LISI5TAB21 PO; +OMEP20TA20 PO; -OMEP20TA25 PO
[2021-12-13 15:57] LABS: BASOPHILS % (AUTO) 0.1 % (0.0-5.0); EOSINOPHILS % (AUTO) 0.7 % (0.0-8.0); HEMATOCRIT 39.7 % (36-48); LYMPHOCYTES % (AUTO) 24.3 % (21.0-51.0); MEAN CORPUSCULAR HEMOGLOBIN 28.8 pg (27.0-33.0); MEAN CORPUSCULAR HGB CONC 34.8 g/dL (32.0-36.0); MEAN CORPUSCULAR VOLUME 82.9 fL (79-99); MONOCYTES % (AUTO) 12.5 % (3.0-13.0); NEUTROPHILS % (AUTO) 61.9 % (40.0-77.0); PLATELET COUNT (AUTO) 331 K/uL (130-400); RED BLOOD CELL COUNT(AUTO) 4.79 MIL/uL (4.00-5.50); RED CELL DISTRIBUTION WIDTH 13.1 % (11.0-15.5); WHITE BLOOD COUNT (AUTO) 9.6 K/uL (4.8-10.8)
[2021-12-13] MEDS ORDERED: ACETAMINOPHEN 500 MG TABLET PO ONE (16:00)
[2021-12-13] MEDS ORDERED: 0.9%NACL 1000ML 1,000 ML IV SCH (16:00)
[2021-12-13 16:18] LABS: APPEARANCE,URINE CLOUDY (CLEAR); BILIRUBIN,URINE SMALL (NEGATIVE); COLOR,URINE YELLOW (YELLOW); GLUCOSE, URINE (UA) NEGATIVE (NEGATIVE); KETONES,URINE NEGATIVE (NEGATIVE); LEUKOCYTE ESTERASE ,URINE LARGE (NEGATIVE); NITRATE,URINE NEGATIVE (NEGATIVE); OCCULT BLOOD,URINE TRACE-INTACT (NEGATIVE); PH,URINE 7.5 (5.0-8.0); PROTEIN,URINE TRACE mg/dL (NEGATIVE)
[2021-12-13 16:18] LABS: ALBUMIN 3.3 g/dL (3.5-5.0); CREATININE 1.2 mg/dL (0.5-1.5); TOTAL PROTEIN, SERUM 7.7 g/dL (6.0-8.3)
[2021-12-13 16:19] LABS: POTASSIUM 2.2 mmol/L (3.5-5.1)
[2021-12-13 16:30] LABS: BACTERIA,URINE Moderate /HPF (None Seen); MUCUS,URINE None Seen LPF (None Seen); SQUAMOUS EPITHELIAL CELL,UR Few /HPF (0-2); URIC ACID CRYSTALS,URINE Few /LPF (None Seen); WBC,URINE 26-50 /HPF (0-1)
[2021-12-13] MEDS ORDERED: CEFTRIAXONE 1G VIAL IVP ONE (16:30)
[2021-12-13] MEDS ORDERED: POTASSIUM BICARB/CIT AC 25 MEQ TABLET.EFF PO ONE (16:30)
[2021-12-13 17:36] VITALS: BP 113/51
[2021-12-13] MEDS ORDERED: CEPH500B PO (17:46)
[2021-12-13] MEDS ORDERED: D-ME1POW16 PO (17:46)
[2021-12-13] MEDS ORDERED: ONDA4TAB10 PO (17:47)
[2021-12-13] MEDS ORDERED: POTA-187 PO (17:47)
== END 2021-12-13 18:10 | disposition home or self-care (01) ==
LOC: EDH 14:35
DX: U07.1 COVID-19 (principal); E87.6 Hypokalemia; N39.0 Urinary tract infection, site not specified; J06.9 Acute upper respiratory infection, unspecified; R11.2 Nausea with vomiting, unspecified; I10 Essential (primary) hypertension; Z79.1 Long term (current) use of non-steroidal anti-inflammatories (NSAID); Z79.899 Other long term (current) drug therapy
CPT/HCPCS: 99284; 80053; 85025; 87077; 87088; 87186; 87804 ×2; 81001; 36415; 87635; 71045; 96374; 96361; C9803; J0696